=== PATIENT | female | born 1950 | race Caucasian/White ===

== ENCOUNTER 2019-02-26 17:58 | Emergency (ER) | payer OTHER ==
[~2019-02-26] VITALS: Ht 165.1 cm; Wt 60.9 kg
[2019-02-26 18:15] VITALS: Ht 165.1 cm; Wt 60.9 kg
[2019-02-26] MEDS ORDERED: morphine 4 MG/ML VIAL IV STA (19:55)
--- NOTE | 2019-02-26 20:01 | ERD ---
ER Documentation Chief Complaint Chief Complaint Pt. RUSSELL , s/p GLF at a restaurant, left hip pain HPI 68-year-old female brought in by ambulance after a trip and ground-level fall at a restaurant today onto her left hip. She is complaining of left hip pain with movement. It radiates down to her knee. She denies any numbness or tingling in the leg. She denies any other injuries. No head trauma or loss of consciousness. ROS All systems reviewed and are negative except as per history of present illness. 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 Neck: Full range of motion. No meningismus. No C-spine tenderness Resp: Clear to auscultation bilaterally Cardio: Regular rate and rhythm, no murmurs Abd: Soft, non tender, non distended. Normal bowel sounds Skin: No petechiae or rashes Back: No midline or flank tenderness Ext: No cyanosis, or edema. 2+ DP and PT pulses bilaterally. 2+ radial pulses bilaterally. Decreased active range of motion of the left hip secondary to pain. Normal range of motion at the knee and ankle. Right lower extremity without evidence of trauma. Bilateral upper extremities normal to inspection and palpation as well. Sensations intact in all distributions of the left lower extremity. Neur: Awake and alert, oriented x3, no facial asymmetry, normal speech, strength and sensations intact in all 4 extremities. Psych: Normal Mood and Affect Result Diagram: 02/26/19203402/26/192034 Results 24 hrs Laboratory Tests Test 02/26/19 20:35 White Blood Count 5.9 10^3/ul Red Blood Count 4.44 10^6/ul Hemoglobin 12.1 g/dl Hematocrit 38.1 % Mean Corpuscular Volume 85.8 fl Mean Corpuscular Hemoglobin 27.3 pg Mean Corpuscular Hemoglobin Concent 31.8 g/dl Red Cell Distribution Width 15.0 % Platelet Count 108 10^3/UL Mean Platelet Volume 8.9 fl Immature Granulocytes % 0.500 % Neutrophils % 72.7 % Lymphocytes % 21.5 % Monocytes % 4.4 % Eosinophils % 0.7 % Basophils % 0.2 % Nucleated Red Blood Cells % 0.0 /100WBC Immature Granulocytes # 0.030 10^3/ul Neutrophils # 4.3 10^3/ul Lymphocytes # 1.3 10^3/ul Monocytes # 0.3 10^3/ul Eosinophils # 0.0 10^3/ul Basophils # 0.0 10^3/ul Nucleated Red Blood Cells # 0.0 10^3/ul Prothrombin Time 13.5 Sec Prothrombin Time Ratio 1.1 INR International Normalized Ratio 1.02 Activated Partial Thromboplast Time 33.2 Sec Sodium Level 142 mmol/L Potassium Level 3.6 mmol/L Chloride Level 104 mmol/L Carbon Dioxide Level 29 mmol/L Anion Gap 9 Blood Urea Nitrogen 23 mg/dl Creatinine 1.12 mg/dl Est Glomerular Filtrat Rate mL/min 49 mL/min Glucose Level 122 mg/dl Calcium Level 10.2 mg/dl Total Bilirubin 0.1 mg/dl Direct Bilirubin 0.00 mg/dl Indirect Bilirubin 0.1 mg/dl Aspartate Amino Transf (AST/SGOT) 32 IU/L Alanine Aminotransferase (ALT/SGPT) 15 IU/L Alkaline Phosphatase 83 IU/L Total Protein 7.9 g/dl Albumin 4.2 g/dl Globulin 3.70 g/dl Albumin/Globulin Ratio 1.13 Current Medications Medications Dose Sig/Jaskaran Start Time Status Last (Trade) Ordered Route PRN Stop Time Admin Dose Reason Admin Morphine 4 mg ONCE STAT 02/26/19 DC 02/26/19 Sulfate IV 19:55 02/26/19 20:40 (morphine) 19:56 Procedures/MDM EMERGENT LABS AND DIAGNOSTIC STUDIES: Lab Results above were reviewed and interpreted by me. CBC: thrombocytopenia, unclear etiology. no anemia CMP: mild renal insufficiency, unknown chronicity Coags: no coagulopathy 12-lead EKG was interpreted by Stanford Bashir MD: Normal Sinus Rhythm Normal axis Normal intervals No acute ST or T wave changes suggestive of acute ischemia or STEMI. Radiology Results as interpreted by Radiology below were reviewed by SForeign Bashir MD: X-ray left hip/femur/pelvis shows evidence of intertrochanteric femur fracture Chest Xray shows no significant abnormalities Initial Nursing notes reviewed. Previous Medical Records requested via the Electronic Health Record. EMERGENCY DEPARTMENT COURSE / MEDICAL DECISION MAKING: Patient is presenting after a mechanical ground level fall with left hip pain, neurovascularly intact. XRays show left femur intertrochanteric fracture. Explained to patient she will need ORIF. Awaiting insurance approval for admission vs transfer at the end of my shift. Signed out to oncoming ED physician who will admit or transfer. Departure Diagnosis: Primary Impression: Fracture, intertrochanteric, left femur Encounter type: initial encounter Fracture type: closed Fracture alignment: nondisplaced Qualified Codes: S72.145A - Nondisplaced intertrochanteric fracture of left femur, initial encounter for closed fracture Additional Impression: Thrombocytopenia Condition: Fair JOAQUIN BASHIR MD Feb 26, 2019 20:01
[2019-02-26 23:16] VITALS: BP 146/90; PULSE 89; RESP 20
[2019-02-26] MEDS ORDERED: AMLO-147 PO (23:21)
[2019-02-26] MEDS ORDERED: LISI40TA3 PO (23:21)
[2019-02-26] MEDS ORDERED: CLON1TAB13 PO (23:21)
[2019-02-26] MEDS ORDERED: METO100T11 PO (23:21)
[2019-02-26] MEDS ORDERED: ASCO500C7 PO (23:28)
[2019-02-26] MEDS ORDERED: MULTI PO (23:28)
[2019-02-26] MEDS ORDERED: PSYL3.4P11 PO (23:28)
== END 2019-02-26 23:34 | disposition short-term general hospital (02) ==
LOC: E/R 17:58
DX: S72.145A Nondisplaced intertrochanteric fracture of left femur, initial encounter for closed fracture (principal); D69.6 Thrombocytopenia, unspecified; I10 Essential (primary) hypertension; W18.39XA Other fall on same level, initial encounter; Y92.511 Restaurant or cafe as the place of occurrence of the external cause
CPT/HCPCS: 71045; 72170; 73510; 73550; 80053; 85025; 85610; 85730; 93005; J2270; 36415; 96374